=== PATIENT | male | born 1990 | race Caucasian/White ===

== ENCOUNTER 2016-08-13 18:27 | Emergency (ER) | payer OTHER ==
--- NOTE | 2016-08-13 19:20 | ED Physician Documentation ---
PD HPI MALE - Stated complaint Stated Complaint: MALE - Chief complaint Chief Complaint: General - History obtained from History obtained from: Patient - History of Present Illness Timing - onset: Yesterday (he had had chlamydial urethritis gotten from girlfriend and was treated about 2 weeks ago with single dose azithromycin (and IM shot, presume Rocephin). [place] better and no intercourse in the interval. Has symptoms again since yesterday. Seen at clinic earlier and had culture obtained. No treatment pending results. Having more dysuria this evening.) Timing - duration: Days (2) Timing - details: Gradual onset, Still present Associated symptoms: Dysuria, Urinary frequency, Discharge. No: Genital sore / lesion, Testiclar pain, Scrotal swelling, Abdominal pain PD HPI MALE CONTRIB FACTORS: Sexually active, Exposed to STD (few weeks ago) Similar symptoms before: Has not had sx before Recently seen: Clinic (2 weeks ago and again earlier today) Review of Systems Constitutional: denies: Fever, Chills Throat: denies: Sore throat GI: denies: Nausea, Vomiting : reports: Dysuria, Discharge. denies: Hematuria Skin: denies: Rash, Lesions PD PAST MEDICAL HISTORY - Past Medical History Past Medical History: No : Other (recent STD) - Past Surgical History Past Surgical History: Yes General: Hiatal hernia repair, Other HEENT: Tonsil/Adenoidectomy - Present Medications Home Medications: Ambulatory Orders Medication Instructions Recorded Confirmed Doxycycline Hyclate 100 mg PO BID #20 tablet 08/13/16 - Allergies Allergies/Adverse Reactions: Allergies Allergy/AdvReac Type Severity Reaction Status Date / Time No Known Drug Allergies Allergy Verified 11/27/13 20:18 - Social History Does the pt smoke?: No Smoking Status: Never smoker Does the pt drink ETOH?: No Does the pt have substance abuse?: No - POLST Patient has POLST: No PD ED PE NORMAL - Vitals Vital signs reviewed: Yes - General General: Alert and oriented X 3, No acute distress, Well developed/nourished - Abdomen Abdomen: Soft, Non tender - Male Male : Other (no external sores. No current discahrge. Testicles not tender. ) - Rectal Rectal: Deferred - Back Back: No CVA TTP Results - Vitals Vitals: Oxygen O2 Source Room air PD MEDICAL DECISION MAKING - ED course Complexity details: re-evaluated patient (given treatment failure with oral Azithromycin, opted for taiwo Doxycycline approach. ), considered differential ( he has symptoms c/w recurrent chlamydia, with initial treatment being the single dose oral azithromycin. He had culture done today at clinic but is having more symptoms this evening and does not want to wait for culture result. ), d/w patient Departure - Departure Disposition: 01 Home, Self Care Clinical Impression: Urethritis Condition: Stable Record reviewed to determine appropriate education?: Yes Instructions: ED STD Male Treated Follow-Up: [facility] [Provider Group] Prescriptions: Doxycycline Hyclate 100 mg PO BID #20 tablet Comments: Doxycycline twice daily for 10 days. Tylenol or Ibuprofen for pains if needed. Drink lots of fluids. Discharge Date/Time: 08/13/16 20:19
[2016-08-13] MEDS ORDERED: DOXYCYCLINE 100 MG TABLET PO STA (19:48)
[2016-08-13] MEDS ORDERED: cefTRIAXone 250 MG VIAL IM STA (19:48)
[2016-08-13] MEDS ORDERED: cefTRIAXone 250 MG VIAL ONE (19:54)
[2016-08-13] MEDS ORDERED: DOXYCYCLINE 100 MG TABLET PO ONE (19:54)
[2016-08-13] MEDS ORDERED: LIDOCAINE 1% 2 ML VIAL ONE (19:55)
[2016-08-13 20:19] VITALS: BP 118/76
== END 2016-08-13 20:19 | disposition home or self-care (01) ==
LOC: ED 18:27
DX: N34.2 Other urethritis (principal)
CPT/HCPCS: 96372; 99283; A9270

== ENCOUNTER 2016-08-26 18:44 | Emergency (ER) | payer OTHER ==
[2016-08-26 18:50] VITALS: BP 127/74
--- NOTE | 2016-08-26 19:21 | ED Physician Documentation ---
PD HPI LOWER EXT INJURY - Stated complaint Stated Complaint: RT ANKLE PAIN - Chief complaint Chief Complaint: Ext Problem - History obtained from History obtained from: Patient - History of Present Illness PD HPI LOW EXT INJURY LOCATION: Right, Ankle Type of injury: Twist Where injury occurred: Other (gym) Timing - onset: How many hours ago (2) Timing - duration: Hours (2) Timing - details: Abrupt onset Pain level max: 5 Pain level now: 4 Improved by: Rest, Ice, Immobilization Worsened by: Moving, Palpating Associated symptoms: Swelling. No: Weakness, Numbness, Tingling, Discolored Contributing factors: No: Anticoagulated, Prior ortho surgery Similar symptoms before: Has not had sx before Recently seen: Not recently seen Review of Systems Skin: denies: Rash Musculoskeletal: denies: Neck pain, Back pain Neurologic: denies: Focal weakness, Numbness, Headache PD PAST MEDICAL HISTORY - Past Medical History Past Medical History: No : Other - Past Surgical History Past Surgical History: Yes General: Hiatal hernia repair, Other HEENT: Tonsil/Adenoidectomy - Present Medications Home Medications: Ambulatory Orders Medication Instructions Recorded Confirmed Doxycycline Hyclate 100 mg PO BID #20 tablet 08/13/16 08/26/16 - Allergies Allergies/Adverse Reactions: Allergies Allergy/AdvReac Type Severity Reaction Status Date / Time No Known Drug Allergies Allergy Verified 08/26/16 19:36 - Living Situation Living Situation: reports: With family Living Arrangement: reports: At home - Social History Does the pt smoke?: No Smoking Status: Never smoker Does the pt drink ETOH?: No Does the pt have substance abuse?: No - POLST Patient has POLST: No PD ED PE NORMAL - Vitals Vital signs reviewed: Yes - General General: Alert and oriented X 3, No acute distress - Neck Neck: Supple, no meningeal sign - Extremities Extremities: Other (R ankle - TTP over the lateral malleolus. NVI. normal foot exam.) - Neuro Neuro: Alert and oriented X 3 - Psych Psych: Normal mood, Normal affect Results - Vitals Vitals: Vital Signs - 24 hr 08/26/16 18:47 Temperature 36.8 C Heart Rate 104 H Respiratory 16 Rate Blood Pressure 127/74 O2 Saturation 99 Oxygen O2 Source Room air - Rads (name of study) R ankle xray Radiology: Prelim report reviewed, EMP read contemporaneously, See rad report ( No fracture. Normal alignment. Ankle swelling present.) PD MEDICAL DECISION MAKING - ED course Complexity details: reviewed results, re-evaluated patient, considered differential, d/w patient, d/w family ED course: Patient with a right ankle sprain. No acute findings on x-ray. Counseled regarding missed fractures secondary to acute swelling and may need repeat xrays if not improving. Placed in a air splint for comfort and given crutches. Declines pain medication here for home. Patient counseled regarding signs and symptoms for which I believe and urgent re-evaluation would be necessary. Patient with good understanding of and agreement to plan and is comfortable going home at this time This document was made in part using voice recognition software. While efforts are made to proofread this document, sound alike and grammatical errors may occur. Departure - Departure Disposition: 01 Home, Self Care Clinical Impression: Ankle sprain Qualifiers: Encounter type: initial encounter Involved ligament of ankle: unspecified ligament Laterality: right Qualified Code(s): S93.401A - Sprain of unspecified ligament of right ankle, initial encounter Condition: Good Instructions: ED Sprain Ankle W X Ray Follow-Up: your,doctor within 1 week [Other] Comments: Your xrays are normal today. Return if you worsen. you may bear weight as tolerated. If you are still having pain in 1 week follow up with your doctor for further evaluation. Discharge Date/Time: 08/26/16 19:55
--- NOTE | 2016-08-26 19:24 | XRAY Preliminary Report ---
Exam: XR Ankle 3 View RT IMPRESSION: 1. No fracture. 2. Normal alignment. Ankle swelling present. [facility] SITE ID: [id number]
--- NOTE | 2016-08-26 19:50 | XRAY Report ---
EXAM: RIGHT ANKLE RADIOGRAPHY EXAM DATE: 08/26/2016 07:16 PM. CLINICAL HISTORY: Pain. COMPARISON: None. TECHNIQUE: 3 views. FINDINGS: Bones: Normal. No fractures or bone lesions. Joints: Normal. No effusion. No subluxations. The ankle mortise is normally aligned. Soft Tissues: Ankle swelling noted. IMPRESSION: 1. No fracture. 2. Normal alignment. Ankle swelling present. [facility] Referring Provider Line: [phone] SITE ID: [id number]
== END 2016-08-26 19:55 | disposition home or self-care (01) ==
LOC: ED 18:44
DX: S93.401A Sprain of unspecified ligament of right ankle, initial encounter (principal); X50.3XXA Overexertion from repetitive movements, initial encounter; Y93.89 Activity, other specified; Y92.39 Other specified sports and athletic area as the place of occurrence of the external cause
CPT/HCPCS: 99283

== ENCOUNTER 2016-09-15 18:02 | Emergency (ER) | payer OTHER ==
--- NOTE | 2016-09-15 18:59 | ED Physician Documentation ---
PD HPI UPPER EXT INJURY - Stated complaint Stated Complaint: THUMB INJURY - Chief complaint Chief Complaint: Ext Problem - History obtained from History obtained from: Patient - History of Present Illness Location: Other (This is a 26-year-old gentleman, active duty in the [employer]. He was playing basketball earlier and jammed his left thumb and there was a deformity, he points to the MCP which he spontaneously reduced and still has pain there but it is controlled by ibuprofen he took prior to arrival.) Review of Systems Constitutional: denies: Fever, Chills Throat: reports: Reviewed and negative Cardiac: reports: Reviewed and negative PD PAST MEDICAL HISTORY - Past Medical History : Other - Past Surgical History Past Surgical History: Yes General: Hiatal hernia repair, Other HEENT: Tonsil/Adenoidectomy - Allergies Allergies/Adverse Reactions: Allergies Allergy/AdvReac Type Severity Reaction Status Date / Time No Known Drug Allergies Allergy Verified 09/15/16 18:11 - Social History Does the pt smoke?: No Smoking Status: Never smoker Does the pt drink ETOH?: Yes Does the pt have substance abuse?: No - Immunizations Immunizations are current?: Yes - POLST Patient has POLST: No PD ED PE NORMAL - Vitals Vital signs reviewed: Yes - General General: Alert and oriented X 3, No acute distress - Extremities Extremities: Other (Tender at the left MCP of the thumb, there is no MCL laxity , but he does seem to have laxity when I extend the thumb at that joint.) - Neuro Neuro: Alert and oriented X 3, Normal speech - Psych Psych: Normal mood, Normal affect Results - Vitals Vitals: Vital Signs - 24 hr 09/15/16 09/15/16 18:08 19:22 Temperature 36.6 C Heart Rate 90 82 Respiratory 16 15 Rate Blood Pressure 130/75 119/74 O2 Saturation 98 96 Oxygen O2 Source Room air - Rads (name of study) Left thumb Radiology: EMP read contemporaneously (No fracture) Procedures - Splint (location) Left hand Splint applied by: Tech Type of splint: Fiberglass, Short arm, Thumb spica Other: Patient tolerated well, No complications, Neurovascular intact Departure - Departure Disposition: 01 Home, Self Care Clinical Impression: Left thumb sprain Qualifiers: Encounter type: initial encounter Sprain of finger site: metacarpophalangeal joint Qualified Code(s): S63.642A - Sprain of metacarpophalangeal joint of left thumb, initial encounter Condition: Good Record reviewed to determine appropriate education?: Yes Instructions: ED Sprain Finger Comments: Keep the splint on and dry, [place] Return if worse. Forms: Activity restrictions
[2016-09-15 19:22] VITALS: BP 119/74
--- NOTE | 2016-09-15 19:22 | XRAY Preliminary Report ---
Exam: XR Finger(s) LT IMPRESSION: Normal digit radiography. [facility] SITE ID: [id number]
--- NOTE | 2016-09-15 19:25 | XRAY Report ---
EXAM: LEFT FIRST DIGIT RADIOGRAPHY EXAM DATE: 09/15/2016 07:02 PM. CLINICAL HISTORY: Thumb inj. COMPARISON: None. TECHNIQUE: 3 views. FINDINGS: Bones: Normal. No fracture or bone lesion. Joints: Normal. No subluxations. Soft Tissues: Normal. No soft tissue swelling. IMPRESSION: Normal digit radiography. [facility] Referring Provider Line: [phone] SITE ID: [id number]
== END 2016-09-15 19:43 | disposition home or self-care (01) ==
LOC: ED 18:02
DX: S63.642A Sprain of metacarpophalangeal joint of left thumb, initial encounter (principal); W22.8XXA Striking against or struck by other objects, initial encounter; Y93.67 Activity, basketball; Y92.838 Other recreation area as the place of occurrence of the external cause
CPT/HCPCS: 29125; 73140; 99283

== ENCOUNTER 2017-03-15 23:57 | Emergency (ER) | payer OTHER ==
[2017-03-16 00:11] VITALS: BP 129/66
[2017-03-16] MEDS ORDERED: IBUPROFEN 800 MG TABLET PO STA (00:52)
--- NOTE | 2017-03-16 01:31 | XRAY Preliminary Report ---
Exam: XR KNEE 3 VIEW RT IMPRESSION: Normal knee radiography. [facility] SITE ID: [id number]
--- NOTE | 2017-03-16 01:31 | XRAY Report ---
EXAM: RIGHT KNEE RADIOGRAPHY EXAM DATE: 03/16/2017 01:16 AM. CLINICAL HISTORY: Right knee injury playing basketball. COMPARISON: None. TECHNIQUE: 3 views. FINDINGS: Bones: Normal. No fractures or bone lesions. Joints: Normal. No effusion. No subluxations. Soft Tissues: Normal. No soft tissue swelling. IMPRESSION: Normal knee radiography. [facility] Referring Provider Line: [phone] SITE ID: [id number]
--- NOTE | 2017-03-16 01:40 | ED Physician Documentation ---
PD HPI LOWER EXT INJURY - Stated complaint Stated Complaint: RT KNEE PAIN - Chief complaint Chief Complaint: Ext Problem - History obtained from History obtained from: Patient - History of Present Illness PD HPI LOW EXT INJURY LOCATION: Right, Knee Type of injury: Blunt / blow Where injury occurred: Other (Basketball court.) Timing - onset: Today Worsened by: Moving, Palpating Similar symptoms before: Has not had sx before - Additional information Additional information: The patient is an otherwise healthy 27-year-old male who presents with pain at the lateral aspect of his right knee. He was playing basketball earlier today when another automotive finance manager's knee collided into the patient's knee. He has been ambulatory since the incident occurred. He denies prior history of knee injury. Review of Systems Constitutional: denies: Fever Skin: denies: Rash, Abrasion (s) Musculoskeletal: reports: Joint pain (right knee). denies: Back pain Neurologic: denies: Focal weakness, Numbness PD PAST MEDICAL HISTORY - Past Medical History Cardiovascular: None Respiratory: None Endocrine/Autoimmune: None : Other Musculoskeletal: None - Past Surgical History Past Surgical History: Yes General: Hiatal hernia repair, Other HEENT: Tonsil/Adenoidectomy - Present Medications Home Medications: Ambulatory Orders Medication Instructions Recorded Confirmed No Known Home Medications [No 03/16/17 03/16/17 Known Home Medications] - Allergies Allergies/Adverse Reactions: Allergies Allergy/AdvReac Type Severity Reaction Status Date / Time No Known Drug Allergies Allergy Verified 03/16/17 00:11 - Social History Does the pt smoke?: No Smoking Status: Never smoker Does the pt drink ETOH?: Yes Does the pt have substance abuse?: No - Immunizations Immunizations are current?: Yes - POLST Patient has POLST: No PD ED PE NORMAL - Vitals Vital signs reviewed: Yes (normal) - General General: Alert and oriented X 3, Well developed/nourished - HEENT HEENT: Atraumatic - Respiratory Respiratory: No respiratory distress - Back Back: No spinal TTP - Derm Derm: No rash - Extremities Extremities: No deformity, No edema, No calf tenderness / cord, Other (There is slight tenderness to palpation over the bony prominence of the right lateral tibial plateau. There is no swelling, abrasion, or erythema. There is no effusion, and no ligamentous instability detected. He is able to fully extend and fully flex the right knee. Distal neurovascular is intact.) - Neuro Neuro: Alert and oriented X 3, No motor deficit, No sensory deficit Results - Vitals Vitals: Oxygen O2 Source Room air - Rads (name of study) Right knee Radiology: Prelim report reviewed, EMP read contemporaneously, See rad report ( Normal knee radiography.) PD MEDICAL DECISION MAKING - ED course Complexity details: reviewed results, considered differential, d/w patient, d/w family ED course: The patient's presentation is most consistent with contusion/strain of the right knee. X-ray reveals no bony abnormality. Treatment in the emergency department included administration of ibuprofen 800 mg orally, and application of a four-inch compression wrap. I discussed with the patient and his the expected course of healing, symptomatic treatment and outpatient follow-up, as well as potentially worrisome signs or symptoms that should prompt reevaluation in the emergency department. Departure - Departure Disposition: 01 Home, Self Care Clinical Impression: Contusion of right knee Qualifiers: Encounter type: initial encounter Qualified Code(s): S80.01XA - Contusion of right knee, initial encounter Condition: Stable Instructions: ED Contusion Lower Ext Follow-Up: [facility] [Provider Group] Comments: You can use ibuprofen, up to 800 mg 3 times daily if needed for pain. Wear the Geraldo wrap if it provides comfort. Let pain be your guide to activity level. Follow up with your primary physician within 2 weeks. Call to schedule appointment. Return to the emergency department if you develop increasing pain or swelling of your knee, or otherwise worsening symptoms. Discharge Date/Time: 03/16/17 01:44
== END 2017-03-16 01:44 | disposition home or self-care (01) ==
LOC: ED 23:57
DX: S80.01XA Contusion of right knee, initial encounter (principal); W51.XXXA Accidental striking against or bumped into by another person, initial encounter; Y93.67 Activity, basketball
CPT/HCPCS: 73562; 99282; 99283; A9270

== ENCOUNTER 2017-07-01 20:08 | Emergency (ER) | payer OTHER ==
[2017-07-01 20:18] VITALS: BP 126/67
--- NOTE | 2017-07-01 20:38 | ED Physician Documentation ---
PD HPI HEENT - Stated complaint Stated Complaint: RT EAR PLUGGED - Chief complaint Chief Complaint: Heent - History obtained from History obtained from: Patient - History of Present Illness Timing - onset: Other (He had muffled hearing in the left ear a few days ago which over the last couple of days is moved to the right ear and he feels like he is listening through water. There is no pain or fever or significant URI symptoms.) Review of Systems Constitutional: denies: Fever, Chills Nose: denies: Rhinorrhea / runny nose Throat: denies: Sore throat Cardiac: denies: Chest pain / pressure, Palpitations PD PAST MEDICAL HISTORY - Past Medical History Cardiovascular: None Respiratory: None Endocrine/Autoimmune: None : Other Musculoskeletal: None - Past Surgical History Past Surgical History: Yes General: Hiatal hernia repair, Other HEENT: Tonsil/Adenoidectomy - Present Medications Home Medications: Ambulatory Orders Medication Instructions Recorded Confirmed Guaifenesin/Pseudoephedrne HCl 1 each PO BID PRN #20 tab.er.12h 07/01/17 [Mucinex D ER 600-60 mg Tablet] Mometasone Furoate [Nasonex] 1 spray NS BID #1 spray.pump 07/01/17 - Allergies Allergies/Adverse Reactions: Allergies Allergy/AdvReac Type Severity Reaction Status Date / Time No Known Drug Allergies Allergy Verified 07/01/17 20:17 - Social History Does the pt smoke?: No Smoking Status: Never smoker Does the pt drink ETOH?: Yes Does the pt have substance abuse?: No - Immunizations Immunizations are current?: Yes - POLST Patient has POLST: No PD ED PE NORMAL - Vitals Vital signs reviewed: Yes - General General: Alert and oriented X 3, No acute distress - HEENT HEENT: Other (He has sclerosis of the left TM and the right TM has serous otitis without otitis media. There is no evidence of external otitis or significant cerumen.) - Neck Neck: Supple, no meningeal sign, No bony TTP - Neuro Neuro: Alert and oriented X 3, Normal speech Results - Vitals Vitals: Vital Signs - 24 hr 07/01/17 20:16 Temperature 36.7 C Heart Rate 73 Respiratory 16 Rate Blood Pressure 126/67 O2 Saturation 100 Oxygen O2 Source Room air Departure - Departure Disposition: 01 Home, Self Care Clinical Impression: Serous otitis media Qualifiers: Chronicity: acute Laterality: right Recurrence: recurrent Qualified Code(s): H65.04 - Acute serous otitis media, recurrent, right ear Condition: Good Record reviewed to determine appropriate education?: Yes Instructions: ED Otitis Media Serous Adult Prescriptions: Guaifenesin/Pseudoephedrne HCl [Mucinex D ER 600-60 mg Tablet] 1 each PO BID PRN #20 tab.er.12h PRN Reason: congestion Mometasone Furoate [Nasonex] 1 spray NS BID #1 spray.pump Comments: Call your doctor to arrange a follow-up appointment, make the next available appointment. In the interim, return anytime if worse or if new symptoms develop.
== END 2017-07-01 20:41 | disposition home or self-care (01) ==
LOC: ED 20:08
DX: H65.04 Acute serous otitis media, recurrent, right ear (principal)
CPT/HCPCS: 99283